=== PATIENT | male | born 1955 | race Caucasian/White ===

== ENCOUNTER 2021-01-19 06:54 | Outpatient (CLI) | payer MEDICARE, OTHER | END 2021-01-19 23:59 | disposition home or self-care (01) | LOC: LAB 06:54 | PROVIDERS: ATTEND Surgery | DX: Z01.812 Encounter for preprocedural laboratory examination (principal); Z20.822 Contact with and (suspected) exposure to COVID-19 ==

== ENCOUNTER 2021-01-21 07:59 | Day surgery (SDC) | payer MEDICARE, OTHER ==
[2021-01-21] MEDS ORDERED: PROPOFOL 200 MG/20 ML BOTTLE IV ONE (08:00)
[2021-01-21] MEDS ORDERED: LIDOCAINE-MPF 2% 5 ML VIAL IJ ONE (08:00)
[2021-01-21] MEDS ORDERED: ATROPINE SULFATE 1 MG/ML VIAL IM ONE (08:00)
== END 2021-01-21 12:55 | disposition home or self-care (01) ==
LOC: DS 07:59
PROVIDERS: ATTEND Surgery
DX: R19.4 Change in bowel habit (principal); K52.89 Other specified noninfective gastroenteritis and colitis; K62.89 Other specified diseases of anus and rectum; K63.89 Other specified diseases of intestine; I10 Essential (primary) hypertension; Z79.899 Other long term (current) drug therapy; Z98.890 Other specified postprocedural states; Z72.89 Other problems related to lifestyle
CPT/HCPCS: 45380; 71045; J3490; A4217; A4663; J0461; J7030